=== PATIENT | male | born 1950 | race Two or more races ===

== ENCOUNTER 2017-10-04 22:24 | Emergency (ER) | payer OTHER, MEDICAID ==
--- NOTE | 2017-10-04 22:44 | CPEKG ---
Heart Rate: 55 RR Interval: 1091 P-R Interval: 132 QRSD Interval: 100 QT Interval: 436 QTC Interval: 417 P [place]: 16 QRS [place]: -47 T Wave [place]: 46 EKG Severity - ABNORMAL ECG - EKG Impression: SINUS RHYTHM EKG Impression: LAD, CONSIDER LEFT ANTERIOR FASCICULAR BLOCK Electronically Signed By: Sharath Arnett 05-Oct-2017 06:17:04
--- NOTE | 2017-10-04 23:01 | EDPHY ---
H & P Stated Complaint: CP since 1400 Time Seen by Provider: 10/04/17 22:48 HPI/ROS: Chief Complaint: Chest pain HPI: 67-year-old male with a history of coronary artery disease status post stenting in the past presenting with intermittent substernal chest pain since 2 o'clock. Patient states at worst is a 3/10. It radiates to his back occasionally. No associated shortness of breath. Is not exertional. Comes on and lasts for a minute or 2 and then goes away. It began at rest. He states that feels similar to the pain that he had prior to his cardiac stenting. No leg pain or swelling. No recent periods of immobility. No nausea or vomiting. No shortness of breath. ROS: 10 point Review of Systems is negative except as noted in the HPI. PMH: Coronary artery disease Social History: No smoking, occasional alcohol, no recreational drug use Family History: non-contributory Physical Exam: Gen: Awake, Alert, No Distress HEENT: Nose: no rhinorrhea Eyes: PERRLA, EOMI Mouth: Moist mucosa Neck: Supple, no JVD Chest: nontender, lungs clear to auscultation Heart: S1, S2 normal, no murmur Abd: Soft, non-tender, no guarding Back: no CVA tenderness, no midline tenderness Ext: no edema, non-tender Skin: no rash Neuro: CN II-XII intact, Sensation grossly intact, Strength 5/5 in bilateral upper and lower extremities - Personal History Current Tetanus/Diphtheria Vaccine: Yes Current Tetanus Diphtheria and Acellular Pertussis (TDAP): Yes - Medical/Surgical History Hx Asthma: No Hx Chronic Respiratory Disease: No Hx Diabetes: No Hx Cardiac Disease: Yes Hx Renal Disease: No Hx Cirrhosis: No Hx Alcoholism: No Hx HIV/AIDS: No Hx Splenectomy or Spleen Trauma: No Other PMH: Stents x3, [place], Prostate CA, Bilat ingunal hernia sx, appendectomy, thonsilectomy. - Social History Smoking Status: Never smoked Constitutional: Initial Vital Signs Temperature (C) 36.6 C 10/04/17 22:27 Heart Rate 57 L 10/04/17 22:27 Respiratory Rate 16 10/04/17 22:27 Blood Pressure 105/58 L 10/04/17 22:27 O2 Sat (%) 95 10/04/17 22:27 O2 Delivery Mode Room Air Allergies/Adverse Reactions: No Known Allergies Allergy (Unverified 02/10/12 17:00) Home Medications: Medication Instructions Recorded Ascorbic Acid [Vitamin C 500 mg 1,500 mg PO DAILY 02/10/12 (OTC)] Aspirin EC [Aspirin EC 325 mg 325 mg PO HS 02/10/12 (OTC)] Atorvastatin Calcium [Lipitor 20 20 mg PO HS 02/10/12 mg (RX)] Carvedilol [Coreg (RX)] 3.125 mg PO BIDMEAL 02/10/12 Clopidogrel Bisulfate [Plavix (RX)] 75 mg PO DAILY 02/10/12 Finasteride [Proscar 5 MG (RX)] 5 mg PO DAILY 02/10/12 [place]-3 Fatty Acids/Fish Oil [Fish 3 each PO DAILY 02/10/12 Oil 1,000 mg Capsule] Pharmacy Completed 02/10/12 02/10/12 Ubidecarenone/Vitamin E [Co Q-10 1 each PO DAILY 02/10/12 50 mg Softgel] Medical Decision Making - Diagnostics EKG Interpretation: ECG time 10:42 p.m.. Sinus rhythm with a rate of 55, normal axis, there is a left anterior fascicular block, no acute ST or T-wave changes. ECG is unchanged from prior from 02/11/2012. Imaging Results: Imaging Impressions Chest X-Ray 10/04/17 23:01 Impression: Nothing acute identified. ED Course/Re-evaluation: 67-year-old male with a history of coronary disease presenting with intermittent chest pain. Patient is pain-free now. No acute changes on his ECG. Troponin is negative. Given his risk factors will admit him for serial troponins. I have discussed with Dr. Nguyen, hospitalist. He will admit to his service. - Data Points Laboratory Results: Laboratory Results 10/04/17 23:15 10/04/17 23:15 10/04/17 10/04/17 23:15 23:15 WBC 7.28 10^3/uL 10^3/uL (3.80-9.50) RBC 3.77 10^6/uL L 10^6/uL (4.40-6.38) Hgb 12.3 g/dL L g/dL (13.7-17.5) Hct 36.4 % L % (40.0-51.0) MCV 96.6 fL fL (81.5-99.8) MCH 32.6 pg pg (27.9-34.1) MCHC 33.8 g/dL g/dL (32.4-36.7) RDW 12.9 % % (11.5-15.2) Plt Count 246 10^3/uL 10^3/uL (150-400) MPV 10.4 fL fL (8.7-11.7) Neut % (Auto) 59.5 % % (39.3-74.2) Lymph % (Auto) 27.9 % % (15.0-45.0) [place] % (Auto) 9.1 % % (4.5-13.0) Eos % (Auto) 2.9 % % (0.6-7.6) Baso % (Auto) 0.5 % % (0.3-1.7) Nucleat RBC Rel Count 0.0 % % (0.0-0.2) Absolute Neuts (auto) 4.33 10^3/uL 10^3/uL (1.70-6.50) Absolute Lymphs (auto) 2.03 10^3/uL 10^3/uL (1.00-3.00) Absolute Monos (auto) 0.66 10^3/uL 10^3/uL (0.30-0.80) Absolute Eos (auto) 0.21 10^3/uL 10^3/uL (0.03-0.40) Absolute Basos (auto) 0.04 10^3/uL 10^3/uL (0.02-0.10) Absolute Nucleated RBC 0.00 10^3/uL 10^3/uL (0-0.01) Immature Gran % 0.1 % % (0.0-1.1) Immature Gran # 0.01 10^3/uL 10^3/uL (0.00-0.10) Sodium 143 mEq/L mEq/L (135-145) Potassium 4.3 mEq/L mEq/L (3.5-5.2) Chloride 106 mEq/L mEq/L (97-110) Carbon Dioxide 22 mEq/l mEq/l (22-31) Anion Gap 15 mEq/L mEq/L (8-16) BUN 17 mg/dL mg/dL (7-23) Creatinine 1.0 mg/dL mg/dL (0.7-1.3) Estimated GFR > 60 Glucose 80 mg/dL mg/dL (70-100) Calcium 8.8 mg/dL mg/dL (8.5-10.4) Troponin I < 0.012 ng/mL ng/mL (0.000-0.034) Departure - Departure Disposition: [facility] Inpatient Acute Clinical Impression: Chest pain Condition: Fair Referrals: Adonis Barry MD [Primary Care Provider] - As per Instructions
[2017-10-04 23:26] LABS: PLATELET COUNT 246 10^3/uL (150-400)
[2017-10-05] MEDS ORDERED: ACETAMINOPHEN 325 MG TAB PO PRN (00:14)
[2017-10-05] MEDS ORDERED: ONDANSETRON 4 MG/2 ML VIAL IVP PRN (00:14)
[2017-10-05] MEDS ORDERED: ONDANSETRON DISINTEGRATING 4 MG TAB PO PRN (00:14)
--- NOTE | 2017-10-05 01:17 | PDGENHP ---
History and Physical - Chief Complaint Chest pain - History of Present Illness 67 yo M w/ hx of CAD p/w chest pain. Patient describes moderate to severe, central chest pain starting around 2 PM. The pain came and went over the next several hours without relation to exertion or rest. The pain radiated to his back but he otherwise denies associated symptoms. He follows with Dr. Soliman who had intended for him to get a stress test but he did not have insurance for this at the time. His initial work-up in the ED was unremarkable and he is now chest pain free. History Information - Allergies/Home Medication List Allergies/Adverse Reactions: No Known Allergies Allergy (Unverified 02/10/12 17:00) Home Medications: Ascorbic Acid [Vitamin C 500 mg (OTC)] 1,500 mg PO DAILY 02/10/12 [Last Taken ] Aspirin EC [Aspirin EC 325 mg (OTC)] 325 mg PO HS 02/10/12 [Last Taken 02/09/12] Atorvastatin Calcium [Lipitor 20 mg (RX)] 20 mg PO HS 02/10/12 [Last Taken 02/08] Carvedilol [Coreg (RX)] 3.125 mg PO BIDMEAL 02/10/12 [Last Taken 02/10/12 09:00] Clopidogrel Bisulfate [Plavix (RX)] 75 mg PO DAILY 02/10/12 [Last Taken 02/10/12 ] Finasteride [Proscar 5 MG (RX)] 5 mg PO DAILY 02/10/12 [Last Taken 02/10/12] [place]-3 Fatty Acids/Fish Oil [Fish Oil 1,000 mg Capsule] 3 each PO DAILY [Last Taken 02/10/12] Pharmacy Completed 02/10/12 02/10/12 [Last Taken Unknown] Ubidecarenone/Vitamin E [Co Q-10 50 mg Softgel] 1 each PO DAILY 02/10/12 [Last Taken 02/10/12] I have personally reviewed and updated: family history, medical history - Past Medical History coronary artery disease - Surgical History Reports: appendectomy, hernia repair, coronary stent Additional surgical history: Tonsillectomy. Cataract. Prostatectomy - Family History Positive for: CAD - Social History Smoking Status: Never smoked Review of Systems Review of Systems: ROS: 10pt was reviewed & negative except for what was stated in HPI & below Physical Exam Physical Exam: Temp Pulse Resp BP Pulse Ox 36.6 C 53 L 18 128/53 H 96 10/04/17 22:27 10/05/17 00:40 10/05/17 00:40 10/05/17 00:40 10/05/17 00:40 Constitutional: no apparent distress, not in pain Eyes: PERRL, EOMI Ears, Nose, Mouth, Throat: moist mucous membranes, no oral mucosal ulcers Cardiovascular: regular rate and rhythym, systolic murmur Respiratory: no respiratory distress, no rales or rhonchi Gastrointestinal: normoactive bowel sounds, soft, non-tender abdomen Skin: warm, normal color Musculoskeletal: full muscle strength, no muscle tenderness Neurologic: AAOx3, CN II-XII Intact Psychiatric: interacting appropriately, not anxious Lab Data & Imaging Review 10/04/17 23:15 10/04/17 23:15 WBC 7.28 10^3/uL (3.80-9.50) 10/04/17 23:15 RBC 3.77 10^6/uL (4.40-6.38) L 10/04/17 23:15 Hgb 12.3 g/dL (13.7-17.5) L 10/04/17 23:15 Hct 36.4 % (40.0-51.0) L 10/04/17 23:15 MCV 96.6 fL (81.5-99.8) 10/04/17 23:15 MCH 32.6 pg (27.9-34.1) 10/04/17 23:15 MCHC 33.8 g/dL (32.4-36.7) 10/04/17 23:15 RDW 12.9 % (11.5-15.2) 10/04/17 23:15 Plt Count 246 10^3/uL (150-400) 10/04/17 23:15 MPV 10.4 fL (8.7-11.7) 10/04/17 23:15 Neut % (Auto) 59.5 % (39.3-74.2) 10/04/17 23:15 Lymph % (Auto) 27.9 % (15.0-45.0) 10/04/17 23:15 [place] % (Auto) 9.1 % (4.5-13.0) 10/04/17 23:15 Eos % (Auto) 2.9 % (0.6-7.6) 10/04/17 23:15 Baso % (Auto) 0.5 % (0.3-1.7) 10/04/17 23:15 Nucleat RBC Rel Count 0.0 % (0.0-0.2) 10/04/17 23:15 Absolute Neuts (auto) 4.33 10^3/uL (1.70-6.50) 10/04/17 23:15 Absolute Lymphs (auto) 2.03 10^3/uL (1.00-3.00) 10/04/17 23:15 Absolute Monos (auto) 0.66 10^3/uL (0.30-0.80) 10/04/17 23:15 Absolute Eos (auto) 0.21 10^3/uL (0.03-0.40) 10/04/17 23:15 Absolute Basos (auto) 0.04 10^3/uL (0.02-0.10) 10/04/17 23:15 Absolute Nucleated RBC 0.00 10^3/uL (0-0.01) 10/04/17 23:15 Immature Gran % 0.1 % (0.0-1.1) 10/04/17 23:15 Immature Gran # 0.01 10^3/uL (0.00-0.10) 10/04/17 23:15 Sodium 143 mEq/L (135-145) 10/04/17 23:15 Potassium 4.3 mEq/L (3.5-5.2) 10/04/17 23:15 Chloride 106 mEq/L (97-110) 10/04/17 23:15 Carbon Dioxide 22 mEq/l (22-31) 10/04/17 23:15 Anion Gap 15 mEq/L (8-16) 10/04/17 23:15 BUN 17 mg/dL (7-23) 10/04/17 23:15 Creatinine 1.0 mg/dL (0.7-1.3) 10/04/17 23:15 Estimated GFR > 60 10/04/17 23:15 Glucose 80 mg/dL (70-100) 10/04/17 23:15 Calcium 8.8 mg/dL (8.5-10.4) 10/04/17 23:15 Troponin I < 0.012 ng/mL (0.000-0.034) 10/04/17 23:15 Imaging Review: Imaging Impressions Chest X-Ray 10/04/17 23:01 Impression: Nothing acute identified. Visualized and Interpreted Chest x-ray results: Yes Chest X-Ray results: no infiltrate Visualized and Interpreted EKG results: Yes EKG Interpretation: Positive for: normal sinsus rhythm Assessment & Plan Assessment: 67 yo M w/ hx of CAD p/w chest pain. Plan: 1. Chest pain - Hx of CAD with 3 stents placed in 2010, follows with Dr. Soliman. Pain today is atypical in that there is no relation to exertion, but it is rather severe. Initial work-up in ED unremarkable with negative troponin and non-ischemic ECG. HEART score of 5 merits admission for observation. - Admit to PCU for observation - Monitor on telemetry, trend cardiac enzymes - Will order Lexiscan stress for risk stratification (patient unable to exercise significantly on treadmill and on Coreg) 2. Hx CAD - [address] Soliman in 2010, on DAPT, BB, and statin as outpatient. Diet - NPO pending risk stratification Code - Full Ppx - LMWH Dispo - Admit under observation status
[2017-10-05 06:09] LABS: PLATELET COUNT 233 10^3/uL (150-400)
[2017-10-05] MEDS ORDERED: REGADENOSON 0.4 MG/5 ML SYR IVP ONE (08:49)
[2017-10-05] MEDS ORDERED: ENOXAPARIN 40 MG/0.4 ML SYR SC SCH (09:00)
--- NOTE | 2017-10-05 11:13 | CPR ---
[f rep st] NONINVASIVE CARDIAC PROCEDURE REPORT PROCEDURE: Injection of Lexiscan MPI study. INDICATION FOR PROCEDURE: Chest pressure with known history of CAD. Unable to run on treadmill. PRE: After obtaining informed consent, ensuring patient's n.p.o. status of caffeine for greater than 12 hours, patient was placed on electrocardiogram. Initial EKG shows sinus bradycardia with ventric ular rate at 55 beats per minute, borderline left axis deviation, nonspecific T-wave abnormalities in lateral leads. Patient denies chest pain, shortness of breath, or symptoms suggesting of ischemia. Initial blood pressure 148/82, saturation 97%. INJECTION: Patient was given Lexiscan slowly IV push followed by nuclear isotope. Within 2 minutes of injection, patient did report some mild shortness of breath, with mild midsternal chest pressure. Heart rate did elevate up to 84 beats per minute, but no significant other EKG changes. Blood press ure down mildly at 138/72. Within 5 minutes, patient reporting all symptoms subsided, heart rate did decrease to 77 beats per minute, blood pressure remained stable at 130/70, saturation 99%. IMPRESSION: male with history of coronary artery disease with episode of chest pressure, ne gative troponins x2. Undergoing Lexiscan MPI study for evaluation for ischemia. No significant EKG changes with injection of Lexiscan, also with reported mild episode of shortness of breath, mild juan st pressure which dissipated within 5 minutes post injection. Vital signs remained stable. Currentl y patient is pain free. He will finish poststress imaging in Nuclear Medicine at this time. /[id number]/MODL
--- NOTE | 2017-10-05 14:55 | HOSPPROG ---
Hospitalist Progress Note Assessment/Plan: 67 yo M w cad here w cp. neg stress no events tele no chf home today see dc summary Subjective: neg stress Objective: Vital Signs Temp Pulse Resp BP Pulse Ox 36.5 C 74 16 129/70 H 96 10/05/17 06:00 10/05/17 12:54 10/05/17 12:54 10/05/17 12:54 10/05/17 12:54 Laboratory Results 10/05/17 06:00 10/05/17 06:00 - Physical Exam Constitutional: no apparent distress, appears nourished Eyes: PERRL, anicteric sclera Ears, Nose, Mouth, Throat: moist mucous membranes, hearing normal Cardiovascular: regular rate and rhythym, no murmur, rub, or gallop Respiratory: no respiratory distress, no rales or rhonchi Gastrointestinal: normoactive bowel sounds, soft, non-tender abdomen Genitourinary: no bladder fullness, No lester in urethra Skin: warm, normal color Musculoskeletal: full muscle strength, no muscle tenderness Neurologic: AAOx3 ICD10 Worksheet Patient Problems: Problems Problem Status Onset Chest pain Acute
[2017-10-05 15:52] VITALS: BP 136/70
--- NOTE | 2017-10-05 16:05 | GDS ---
[f rep st] DISCHARGE SUMMARY DISCHARGE DIAGNOSES: 1. Coronary disease. 2. Prostate cancer. 3. Chest pain. HOSPITAL COURSE: Please see admission history and physical by Dr. Mani Nguyen. Patient pre sented with chest pain which is similar in nature although less severe than his previous anginal symp toms. He had an EKG without ischemic changes. He is not in congestive heart failure. HDL negative, troponins negative, and chest x-ray and Lexiscan showing no evidence of prior infarct or current isc hemia. He is discharged home on an unchanged medication regimen that includes beta moreno, aspirin, statin, clopidogrel. 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 /[id number]/MODL
== END 2017-10-05 15:53 | disposition still patient (30) ==
LOC: UNDOADMOB 10-05 00:09
DX: I25.119 Atherosclerotic heart disease of native coronary artery with unspecified angina pectoris (principal); C61 Malignant neoplasm of prostate; Z95.5 Presence of coronary angioplasty implant and graft; I25.2 Old myocardial infarction
CPT/HCPCS: 71046; 78452; 93005; 93017; 99285; A9500; J2785; J1650

== ENCOUNTER 2018-11-09 07:49 | Day surgery (SDC) | payer OTHER, MEDICAID | END 2018-11-09 14:36 | disposition home or self-care (01) | LOC: FCATH 07:49 ==